=== PATIENT | female | born 1950 ===

== ENCOUNTER 2017-11-27 11:14 | Outpatient (CLI) | payer OTHER ==
[~2017-11-27 11:14] MED LIST: ASA81 MG; GLIMEPIRIDE2 MG; HYZAAR 100-121 UDTAB; METFORMIN HCL1000 MG; NEURONTIN600 MG; PRAVASTATIN SOD20 MG; TOPROL XL50 MG
== END 2017-11-27 11:25 | disposition home or self-care (01) ==
LOC: MAMO-SONO 11:14
DX: Z12.31 Encounter for screening mammogram for malignant neoplasm of breast (principal); Z87.898 Personal history of other specified conditions; N63.10 Unspecified lump in the right breast, unspecified quadrant; N63.20 Unspecified lump in the left breast, unspecified quadrant

== ENCOUNTER 2017-12-08 12:25 | Outpatient (CLI) | payer OTHER | END 2017-12-08 16:03 | disposition home or self-care (01) | LOC: NUCLEAR 12:25 | DX: M81.0 Age-related osteoporosis without current pathological fracture (principal) ==